=== PATIENT | female | born 1965 | race Hispanic/Latino ===

== ENCOUNTER 2017-07-04 08:34 | Outpatient (CLI) | payer BC ==
--- NOTE | 2017-07-04 11:45 | CT ---
CT ABDOMEN AND PELVIS WITH ORAL AND IV CONTRAST: Date: 07/04/17 HISTORY: Rectal cancer, stage IV colon cancer, status post chemo/radiation therapy 1 week ago. COMPARISON: 03/17/17. FINDINGS: The lung bases are clear. Multiple liver masses again noted. Some of these have increased in size. The largest in the right lo be currently measures 17.0 x 12.0 mm on the axial images (16.0 x 11.7 cm on previous study). The les ion in the inferior pole aspect of the right lobe of the liver currently measures about 3.0 cm (prev iously 2.5 cm). Some of the lesions are stable, such as the 2.2 cm lesion close to the falciform lig ament. The lesion in the left lobe of the liver is slightly smaller, measuring 11.0 mm (previously 1 7.0 mm). The spleen, pancreas, adrenal glands, and right kidney are normal. Nonobstructing left renal calculu s is stable. No free air, free fluid, or lymphadenopathy seen in the abdomen. The left perirectal lymph nodes are stable, measuring up to 18.0 mm. The 15.0 mm left internal iliac lymph node is stable. No calcified gallstones are seen. The small bowel loops are not abnormally dilated. There is fecal m aterial in the colon. Uterus is present. Ill-defined thickening in the rectal wall is again noted. T here are degenerative changes in the spine. IMPRESSION: Mixed response to therapy since 03/17/17. POS: [facility]
== END 2017-07-04 08:35 | disposition home or self-care (01) ==
LOC: CT 08:34
PROVIDERS: ATTEND Internal Medicine Hematology & Oncology
DX: C20 Malignant neoplasm of rectum (principal)
CPT/HCPCS: 74177

== ENCOUNTER 2017-09-16 10:19 | Day surgery (SDC) | payer SELFPAY ==
[2017-09-16] MEDS ORDERED: Sodium Chloride 0.9% 30 ML ONE (10:41)
[2017-09-16] MEDS ORDERED: PALONOSETRON HCL 0.05 MG/ML 5 ML VIAL IVP SCH (10:45)
[2017-09-16] MEDS ORDERED: Dexamethasone 10 MG/ML VIAL SLOW IVP SCH (10:45)
[2017-09-16] MEDS ORDERED: Atropine Sulfate 0.25 MG in Sodium Chloride 0.9% 50 ML IVPB SCH (10:45)
[2017-09-16] MEDS ORDERED: Fluorouracil 700 MG in Sodium Chloride 0.9% 50 ML IVPB SCH (11:00)
[2017-09-16] MEDS ORDERED: Bevacizumab 350 MG in Sodium Chloride 0.9% 86 ML IVPB SCH (11:00)
[2017-09-16] MEDS ORDERED: Leucovorin Calcium 50 MG in Sodium Chloride 0.9% 500 ML IVPB SCH (11:00)
[2017-09-16 11:11] VITALS: BP 128/70; TEMP 98.4
[2017-09-16] MEDS: IRINOTECAN HCL IVPB SCH (13:02)
[2017-09-16] MEDS: SODIUM CHLORIDE 0.9% IVPB SCH (13:02)
== END 2017-09-16 15:57 | disposition home or self-care (01) ==
LOC: ONC/OP 10:19
PROVIDERS: ATTEND Internal Medicine Hematology & Oncology
DX: Z51.11 Encounter for antineoplastic chemotherapy (principal); C20 Malignant neoplasm of rectum; C78.7 Secondary malignant neoplasm of liver and intrahepatic bile duct; F17.210 Nicotine dependence, cigarettes, uncomplicated; Z79.899 Other long term (current) drug therapy; Z98.51 Tubal ligation status; Z98.890 Other specified postprocedural states
CPT/HCPCS: 96367; 96375; 96413; 96415; 96417; A4216; J0461; J0640; J1100; J2469; J7050; J9035; J9190; J9206

== ENCOUNTER 2017-09-30 11:41 | Day surgery (SDC) | payer OTHER, SELFPAY ==
[2017-09-30] MEDS ORDERED: PALONOSETRON HCL 0.05 MG/ML 5 ML VIAL IVP SCH (12:15)
[2017-09-30] MEDS ORDERED: Bevacizumab 350 MG in Sodium Chloride 0.9% 86 ML IVPB SCH (12:15)
[2017-09-30] MEDS ORDERED: IRINOTECAN HCL IVPB SCH (12:15)
[2017-09-30] MEDS ORDERED: Atropine Sulfate 0.25 MG in Sodium Chloride 0.9% 50 ML IVPB SCH (12:15)
[2017-09-30] MEDS ORDERED: Dexamethasone 4 mg/ml Vial SLOW IVP SCH (12:15)
[2017-09-30] MEDS ORDERED: Fluorouracil 700 MG in Sodium Chloride 0.9% 50 ML IVPB SCH (12:15)
[2017-09-30] MEDS ORDERED: SODIUM CHLORIDE 0.9% IVPB SCH (12:15)
[2017-09-30] MEDS ORDERED: Leucovorin Calcium 50 MG in Sodium Chloride 0.9% 500 ML IVPB SCH (12:15)
== END 2017-09-30 17:09 | disposition home or self-care (01) ==
LOC: ONC/OP 11:41
PROVIDERS: ATTEND Internal Medicine Hematology & Oncology
DX: Z51.11 Encounter for antineoplastic chemotherapy (principal); C20 Malignant neoplasm of rectum; C78.7 Secondary malignant neoplasm of liver and intrahepatic bile duct; F17.210 Nicotine dependence, cigarettes, uncomplicated; Z79.899 Other long term (current) drug therapy; Z98.51 Tubal ligation status; Z98.890 Other specified postprocedural states
CPT/HCPCS: 96367; 96375; 96413; 96417; J0461; J0640; J1100; J2469; J7050; J9035; J9190; J9206

== ENCOUNTER 2017-10-14 11:42 | Day surgery (SDC) | payer SELFPAY ==
[2017-10-14] MEDS ORDERED: Atropine Sulfate 1 mg/1 ml Vial IVP SCH (12:00)
[2017-10-14] MEDS ORDERED: PALONOSETRON HCL 0.05 MG/ML 5 ML VIAL IVP SCH (12:00)
[2017-10-14] MEDS ORDERED: Dexamethasone 4 mg/ml Vial SLOW IVP SCH (12:00)
[2017-10-14] MEDS ORDERED: Fluorouracil 700 MG in Dextrose 5% in Water 50 ML IVPB SCH ×2 (12:15)
[2017-10-14] MEDS ORDERED: Bevacizumab 350 MG in Sodium Chloride 0.9% 86 ML IVPB SCH (12:15)
[2017-10-14] MEDS ORDERED: Leucovorin Calcium 50 MG in Sodium Chloride 0.9% 500 ML IVPB SCH (12:15)
[2017-10-14] MEDS ORDERED: SODIUM CHLORIDE 0.9% IVPB SCH ×2 (12:15)
[2017-10-14] MEDS ORDERED: IRINOTECAN HCL IVPB SCH (12:15)
[2017-10-14] MEDS ORDERED: BEVACIZUMAB IVPB SCH (12:15)
[2017-10-14] MEDS ORDERED: Fluorouracil 700 MG in Sodium Chloride 0.9% 50 ML IVPB SCH (12:30)
[2017-10-14] MEDS ORDERED: Atropine Sulfate 0.25 MG in Sodium Chloride 0.9% 50 ML IVPB SCH (12:30)
== END 2017-10-14 16:58 | disposition home or self-care (01) ==
LOC: ONC/OP 11:42
PROVIDERS: ATTEND Internal Medicine Hematology & Oncology
DX: Z51.11 Encounter for antineoplastic chemotherapy (principal); C20 Malignant neoplasm of rectum; C78.7 Secondary malignant neoplasm of liver and intrahepatic bile duct; I10 Essential (primary) hypertension; F17.200 Nicotine dependence, unspecified, uncomplicated; Z79.899 Other long term (current) drug therapy; Z98.51 Tubal ligation status; Z98.890 Other specified postprocedural states
CPT/HCPCS: 96367; 96375; 96413; 96415; 96417; J0461; J0640; J1100; J2469; J7050; J7070; J9035; J9190; J9206

== ENCOUNTER 2017-10-28 12:57 | Day surgery (SDC) | payer BC, SELFPAY ==
[2017-10-28] MEDS ORDERED: PALONOSETRON HCL 0.05 MG/ML 5 ML VIAL IVP SCH (13:15)
[2017-10-28] MEDS ORDERED: Dexamethasone 10 MG/ML VIAL SLOW IVP SCH (13:15)
[2017-10-28] MEDS ORDERED: Atropine Sulfate 1 mg/1 ml Vial IVP SCH (13:15)
[2017-10-28] MEDS ORDERED: Leucovorin Calcium 50 MG in Sodium Chloride 0.9% 500 ML IVPB SCH (13:15)
[2017-10-28] MEDS ORDERED: IRINOTECAN HCL IVPB SCH (13:15)
[2017-10-28] MEDS ORDERED: SODIUM CHLORIDE 0.9% IVPB SCH (13:15)
[2017-10-28] MEDS ORDERED: Fluorouracil 700 MG in Dextrose 5% in Water 50 ML IVPB SCH (13:30)
[2017-10-28] MEDS ORDERED: Fluorouracil 700 MG in Sodium Chloride 0.9% 50 ML IVPB SCH (13:45)
[2017-10-28] MEDS ORDERED: Atropine Sulfate 0.25 MG in Sodium Chloride 0.9% 50 ML IVPB SCH (13:45)
[2017-10-28] MEDS ORDERED: Sodium Chloride 0.9% 30 ML ONE (13:46)
[2017-10-28] MEDS: Amlodipine 5 MG TAB PO SCH ×2 (13:50→15:26)
[2017-10-28] MEDS ORDERED: Sodium Chloride 0.9% 50 ML ONE (14:03)
[2017-10-28 15:31] VITALS: TEMP 98.1
[2017-10-28 17:42] VITALS: BP 194/106
== END 2017-10-28 17:41 | disposition home or self-care (01) ==
LOC: ONC/OP 12:57
PROVIDERS: ATTEND Internal Medicine Hematology & Oncology
DX: Z51.11 Encounter for antineoplastic chemotherapy (principal); C20 Malignant neoplasm of rectum; C78.7 Secondary malignant neoplasm of liver and intrahepatic bile duct; I10 Essential (primary) hypertension; F17.200 Nicotine dependence, unspecified, uncomplicated; Z79.899 Other long term (current) drug therapy; Z98.890 Other specified postprocedural states; Z98.51 Tubal ligation status
CPT/HCPCS: 96367; 96413; 96415; 96417; 99212; A4216; G0463; J0461; J0640; J1100; J2469; J7050; J7070; J9190; J9206

== ENCOUNTER 2017-11-11 12:08 | Day surgery (SDC) | payer BC, SELFPAY ==
[2017-11-11] MEDS ORDERED: cloNIDine 0.1 MG TAB PO SCH (12:30)
[2017-11-11] MEDS ORDERED: Atropine Sulfate 1 mg/10 ml Syringe IVP SCH (12:30)
[2017-11-11] MEDS ORDERED: PALONOSETRON HCL 0.05 MG/ML 5 ML VIAL IVP SCH (12:30)
[2017-11-11] MEDS ORDERED: SODIUM CHLORIDE 0.9% IVPB SCH (12:30)
[2017-11-11] MEDS ORDERED: HYDROcodone/Acetaminophen 5/325 mg Tablet PO SCH (12:30)
[2017-11-11] MEDS ORDERED: Leucovorin Calcium 50 MG in Sodium Chloride 0.9% 500 ML IVPB SCH (12:30)
[2017-11-11] MEDS ORDERED: IRINOTECAN HCL IVPB SCH (12:30)
[2017-11-11] MEDS ORDERED: Dexamethasone 10 MG/ML VIAL SLOW IVP SCH (12:30)
[2017-11-11] MEDS ORDERED: Fluorouracil 700 MG in Dextrose 5% in Water 50 ML IVPB SCH (12:30)
[2017-11-11 13:01] VITALS: BP 221/103
[2017-11-11 13:20] VITALS: TEMP 98.1
== END 2017-11-11 17:21 | disposition home or self-care (01) ==
LOC: ONC/OP 12:08
PROVIDERS: ATTEND Internal Medicine Hematology & Oncology
DX: Z51.11 Encounter for antineoplastic chemotherapy (principal); C20 Malignant neoplasm of rectum; C78.7 Secondary malignant neoplasm of liver and intrahepatic bile duct; I10 Essential (primary) hypertension; F17.200 Nicotine dependence, unspecified, uncomplicated; Z79.899 Other long term (current) drug therapy; Z98.890 Other specified postprocedural states
CPT/HCPCS: 96366; 96367; 96375; 96413; 96415; 96417; J0461; J0640; J1100; J2469; J7050; J7070; J9190; J9206

== ENCOUNTER 2017-11-19 08:47 | Outpatient (CLI) | payer BC ==
[2017-11-19] MEDS ORDERED: Iopamidol 370 76% 100 ML VIAL ONE (16:28)
== END 2017-11-19 08:48 | disposition home or self-care (01) ==
LOC: BICCT 08:47
PROVIDERS: ATTEND Internal Medicine Hematology & Oncology
DX: C20 Malignant neoplasm of rectum (principal); C78.7 Secondary malignant neoplasm of liver and intrahepatic bile duct; R59.0 Localized enlarged lymph nodes
CPT/HCPCS: 74177

== ENCOUNTER 2017-11-25 11:11 | Day surgery (SDC) | payer SELFPAY ==
[2017-11-25] MEDS ORDERED: IRINOTECAN HCL IVPB SCH (11:30)
[2017-11-25] MEDS ORDERED: Atropine Sulfate 0.25 MG, Admixture Fee 1 EACH in Sodium Chloride 0.9% 50 ML IVPB SCH (11:30)
[2017-11-25] MEDS ORDERED: ADMIXTURE FEE IVPB SCH ×3 (11:30)
[2017-11-25] MEDS ORDERED: Dexamethasone 10 MG/ML VIAL SLOW IVP SCH (11:30)
[2017-11-25] MEDS ORDERED: PALONOSETRON HCL 0.05 MG/ML 5 ML VIAL IVP SCH (11:30)
[2017-11-25] MEDS ORDERED: FLUOROURACIL IVPB SCH (11:30)
[2017-11-25] MEDS ORDERED: LEUCOVORIN CALCIUM IVPB SCH (11:30)
[2017-11-25] MEDS ORDERED: SODIUM CHLORIDE IVPB SCH ×3 (11:30)
[2017-11-25] MEDS ORDERED: Amlodipine 5 MG TAB PO SCH (11:30)
[2017-11-25] MEDS ORDERED: Sodium Chloride 0.9% 30 ML ONE (11:57)
[2017-11-25 12:01] VITALS: BP 191/74
== END 2017-11-25 16:33 | disposition home or self-care (01) ==
LOC: ONC/OP 11:11
PROVIDERS: ATTEND Internal Medicine Hematology & Oncology
DX: Z51.11 Encounter for antineoplastic chemotherapy (principal); C20 Malignant neoplasm of rectum; C78.7 Secondary malignant neoplasm of liver and intrahepatic bile duct; Z98.890 Other specified postprocedural states
CPT/HCPCS: 96366; 96367; 96375; 96413; 96415; 96416; 96417; A4216; J0461; J0640; J1100; J2469; J7050; J9190; J9206

== ENCOUNTER → 2017-12-30 | Day surgery (SDC) | payer BC ==
[~2017-12-30] MED LIST: ADMIXTURE FEE IVPB SCH; Atropine Sulfate 0.25 MG, Admixture Fee 1 EACH in Sodium Chloride 0.9% 50 ML IVPB SCH; Dexamethasone 10 MG/ML VIAL SLOW IVP SCH; FLUOROURACIL IVPB SCH; IRINOTECAN HCL IVPB SCH; LEUCOVORIN CALCIUM IVPB SCH; PALONOSETRON HCL 0.05 MG/ML 5 ML VIAL IVP SCH; SODIUM CHLORIDE IVPB SCH; Sodium Chloride 0.9% 40 ML ONE
== END ==
LOC: ONC/OP 11:59
PROVIDERS: ATTEND Internal Medicine Hematology & Oncology
DX: Z51.11 Encounter for antineoplastic chemotherapy (principal); C20 Malignant neoplasm of rectum; C78.7 Secondary malignant neoplasm of liver and intrahepatic bile duct; I10 Essential (primary) hypertension; F17.200 Nicotine dependence, unspecified, uncomplicated; Z79.899 Other long term (current) drug therapy
CPT/HCPCS: 96366; 96367; 96375; 96413; 96415; 96416; 96417; A4216; J0461; J0640; J1100; J1642; J2469; J7050; J9190; J9206

== ENCOUNTER 2018-01-13 12:13 | Day surgery (SDC) | payer BC ==
[2018-01-13] MEDS ORDERED: Dexamethasone 10 MG/ML VIAL SLOW IVP SCH (12:30)
[2018-01-13] MEDS ORDERED: PALONOSETRON HCL 0.05 MG/ML 5 ML VIAL IVP SCH (12:30)
[2018-01-13] MEDS ORDERED: SODIUM CHLORIDE 0.9% IVPB SCH ×2 (12:45)
[2018-01-13] MEDS ORDERED: IRINOTECAN HCL IVPB SCH ×2 (12:45)
[2018-01-13] MEDS ORDERED: Atropine Sulfate 0.25 MG in Sodium Chloride 0.9% 50 ML IVPB SCH (12:45)
[2018-01-13] MEDS ORDERED: Leucovorin Calcium 50 MG in Sodium Chloride 0.9% 500 ML IVPB SCH (12:45)
[2018-01-13] MEDS ORDERED: Fluorouracil 700 MG in Sodium Chloride 0.9% 50 ML IVPB SCH (12:45)
[2018-01-13 12:56] VITALS: BP 186/88; TEMP 98.8
[2018-01-13] MEDS ORDERED: Sodium Chloride 0.9% 40 ML ONE (13:05)
== END 2018-01-13 16:17 | disposition home or self-care (01) ==
LOC: ONC/OP 12:13
PROVIDERS: ATTEND Internal Medicine Hematology & Oncology
DX: Z51.11 Encounter for antineoplastic chemotherapy (principal); C20 Malignant neoplasm of rectum; C78.7 Secondary malignant neoplasm of liver and intrahepatic bile duct; I10 Essential (primary) hypertension; F17.200 Nicotine dependence, unspecified, uncomplicated; Z79.899 Other long term (current) drug therapy
CPT/HCPCS: 96366; 96368; 96375; 96413; 96415; 96416; 96417; A4216; J0461; J0640; J1100; J2469; J7050; J9190; J9206

== ENCOUNTER → 2018-02-24 | Day surgery (SDC) | payer BC ==
[~2018-02-24] MED LIST changes: -ADMIXTURE FEE IVPB SCH; +Atropine Sulfate 0.25 MG in Sodium Chloride 0.9% 50 ML IVPB SCH; -Atropine Sulfate 0.25 MG, Admixture Fee 1 EACH in Sodium Chloride 0.9% 50 ML IVPB SCH; -FLUOROURACIL IVPB SCH; +Fluorouracil 700 MG in Sodium Chloride 0.9% 50 ML IVPB SCH; -LEUCOVORIN CALCIUM IVPB SCH; +Leucovorin Calcium 50 MG in Sodium Chloride 0.9% 500 ML IVPB SCH; +SODIUM CHLORIDE 0.9% IVPB SCH; -SODIUM CHLORIDE IVPB SCH
[2018-02-24 16:57] VITALS: BP 185/87; TEMP 98.1
== END ==
LOC: ONC/OP 12:18
PROVIDERS: ATTEND Internal Medicine Medical Oncology
DX: Z51.11 Encounter for antineoplastic chemotherapy (principal); C20 Malignant neoplasm of rectum; Z79.899 Other long term (current) drug therapy
CPT/HCPCS: 96367; 96375; 96413; 96415; 96416; 96417; A4216; J0461; J0640; J1100; J2469; J7050; J9190; J9206

== ENCOUNTER 2018-03-13 09:41 | Outpatient (CLI) | payer BC ==
[2018-03-13] MEDS ORDERED: ISOVUE-370 76%-LOCM 1 ML ONE (12:12)
== END 2018-03-13 09:42 | disposition home or self-care (01) ==
LOC: BICCT 09:41
PROVIDERS: ATTEND Internal Medicine Hematology & Oncology
DX: C20 Malignant neoplasm of rectum (principal)
CPT/HCPCS: 71260; 74177

== ENCOUNTER 2018-03-17 13:13 | Day surgery (SDC) | payer BC ==
[2018-03-17] MEDS ORDERED: IRINOTECAN HCL IVPB SCH (13:30)
[2018-03-17] MEDS ORDERED: Fluorouracil 700 MG in Dextrose 5% in Water 50 ML IVPB SCH (13:30)
[2018-03-17] MEDS ORDERED: PALONOSETRON HCL 0.05 MG/ML 5 ML VIAL IVP SCH (13:30)
[2018-03-17] MEDS ORDERED: Atropine Sulfate 0.25 MG in Sodium Chloride 0.9% 50 ML IVPB SCH (13:30)
[2018-03-17] MEDS ORDERED: SODIUM CHLORIDE 0.9% IVPB SCH (13:30)
[2018-03-17] MEDS ORDERED: Leucovorin Calcium 50 MG in Sodium Chloride 0.9% 500 ML IVPB SCH (13:30)
[2018-03-17] MEDS ORDERED: Dexamethasone 10 MG/ML VIAL SLOW IVP SCH (13:30)
[2018-03-17 13:36] VITALS: BP 193/97; TEMP 99
[2018-03-17] MEDS ORDERED: Fluorouracil 700 MG in Sodium Chloride 0.9% 50 ML IVPB SCH (13:45)
== END 2018-03-17 16:51 | disposition home or self-care (01) ==
LOC: ONC/OP 13:13
PROVIDERS: ATTEND Internal Medicine Hematology & Oncology
DX: Z51.11 Encounter for antineoplastic chemotherapy (principal); C20 Malignant neoplasm of rectum; C78.7 Secondary malignant neoplasm of liver and intrahepatic bile duct; I10 Essential (primary) hypertension; F17.200 Nicotine dependence, unspecified, uncomplicated; Z79.82 Long term (current) use of aspirin; Z79.899 Other long term (current) drug therapy
CPT/HCPCS: 96367; 96375; 96413; 96415; 96416; 96417; J0461; J0640; J1100; J2469; J7050; J7070; J9190; J9206

== ENCOUNTER 2018-05-05 11:14 | Day surgery (SDC) | payer BC ==
[2018-05-05 11:42] VITALS: BP 172/93; TEMP 97.9
[2018-05-05] MEDS ORDERED: Amlodipine 5 MG TAB PO SCH (11:45)
[2018-05-05] MEDS ORDERED: Dexamethasone 10 MG/ML VIAL SLOW IVP SCH (11:45)
[2018-05-05] MEDS ORDERED: IRINOTECAN HCL IVPB SCH (11:45)
[2018-05-05] MEDS ORDERED: Fluorouracil 700 MG in Sodium Chloride 0.9% 50 ML IVPB SCH (11:45)
[2018-05-05] MEDS ORDERED: Atropine Sulfate 0.25 MG in Sodium Chloride 0.9% 50 ML IVPB SCH (11:45)
[2018-05-05] MEDS ORDERED: PALONOSETRON HCL 0.05 MG/ML 5 ML VIAL IVP SCH ×2 (11:45→12:15)
[2018-05-05] MEDS ORDERED: SODIUM CHLORIDE 0.9% IVPB SCH (11:45)
[2018-05-05] MEDS ORDERED: Leucovorin Calcium 50 MG in Sodium Chloride 0.9% 500 ML IVPB SCH (11:45)
[2018-05-05] MEDS ORDERED: Dexamethasone 4 mg/ml Vial SLOW IVP SCH (12:15)
== END 2018-05-05 17:27 | disposition home or self-care (01) ==
LOC: ONC/OP 11:14
PROVIDERS: ATTEND Internal Medicine Hematology & Oncology
DX: Z51.11 Encounter for antineoplastic chemotherapy (principal); C20 Malignant neoplasm of rectum; F17.200 Nicotine dependence, unspecified, uncomplicated; Z79.899 Other long term (current) drug therapy
CPT/HCPCS: 96367; 96375; 96413; 96415; 96416; 96417; J0461; J0640; J1100; J2469; J7050; J9190; J9206

== ENCOUNTER 2018-05-26 11:26 | Day surgery (SDC) | payer BC ==
[2018-05-26] MEDS ORDERED: Palonosetron HCl 0.25 MG in Sodium Chloride 0.9% 50 ML IVPB SCH (11:45)
[2018-05-26] MEDS ORDERED: Fluorouracil 700 MG in Sodium Chloride 0.9% 50 ML IVPB SCH (11:45)
[2018-05-26] MEDS ORDERED: Leucovorin Calcium 50 MG in Sodium Chloride 0.9% 500 ML IVPB SCH (11:45)
[2018-05-26] MEDS ORDERED: SODIUM CHLORIDE 0.9% IVPB SCH (11:45)
[2018-05-26] MEDS ORDERED: Atropine Sulfate 0.25 MG in Sodium Chloride 0.9% 50 ML IVPB SCH (11:45)
[2018-05-26] MEDS ORDERED: IRINOTECAN HCL IVPB SCH (11:45)
[2018-05-26] MEDS ORDERED: Dexamethasone 10 MG in Sodium Chloride 0.9% 50 ML IVPB SCH (11:45)
[2018-05-26 13:07] VITALS: BP 169/88; TEMP 98.3
== END 2018-05-26 17:07 | disposition home or self-care (01) ==
LOC: ONC/OP 11:26
PROVIDERS: ATTEND Internal Medicine Hematology & Oncology
DX: Z51.11 Encounter for antineoplastic chemotherapy (principal); C20 Malignant neoplasm of rectum; F17.200 Nicotine dependence, unspecified, uncomplicated
CPT/HCPCS: 96367; 96375; 96413; 96415; 96416; 96417; J0461; J0640; J1100; J2469; J7050; J9190; J9206